=== PATIENT | male | born 1985 | race Hispanic/Latino ===

== ENCOUNTER 2019-04-17 10:51 | Emergency (ER) | payer SELFPAY ==
--- NOTE | 2019-04-17 11:50 | RAD ---
EXAM: Two views chest PROVIDED CLINICAL HISTORY: 01/16/2014 COMPARISON: None FINDINGS: Cardiac silhouette and pulmonary vasculature are within normal limits. The lungs are clear. The osse ous structures have a normal appearance. There has been no interval change from prior study. IMPRESSION: No acute cardiopulmonary process.
[2019-04-17] MEDS ORDERED: Acetaminophen 500 MG TAB ONE (12:21)
[2019-04-17] MEDS ORDERED: Ibuprofen 800 MG TAB ONE (12:22)
== END 2019-04-17 14:01 | disposition home or self-care (01) ==
LOC: ERS 10:51
DX: J11.1 Influenza due to unidentified influenza virus with other respiratory manifestations (principal); F17.210 Nicotine dependence, cigarettes, uncomplicated
CPT/HCPCS: 71046; 87804

== ENCOUNTER 2020-07-05 20:33 | Emergency (ER) | payer SELFPAY | END 2020-07-05 22:24 | disposition home or self-care (01) | LOC: ERS 20:33 | DX: F41.9 Anxiety disorder, unspecified (principal); R06.00 Dyspnea, unspecified; F17.210 Nicotine dependence, cigarettes, uncomplicated | CPT/HCPCS: 99284 ==